=== PATIENT | female | born 1990 | race Caucasian/White ===

== ENCOUNTER 2017-04-07 05:51 | Emergency (ER) | payer OTHER ==
[2017-04-07 05:56] VITALS: TEMP 97.7
--- NOTE | 2017-04-07 06:07 | CPEKG ---
Heart Rate: 66 RR Interval: 909 QRSD Interval: 92 QT Interval: 396 QTC Interval: 415 QRS [place]: 31 T Wave [place]: 17 EKG Severity - NORMAL ECG - EKG Impression: Sinus Rhythm Electronically Signed By: Chico Vargas 07-Apr-2017 06:18:54
--- NOTE | 2017-04-07 06:19 | EDPHY ---
H & P Stated Complaint: FAST HEARTRATE AND TIGHTNESS IN CHEST WITH WAKING UP THIS AM Time Seen by Provider: 04/07/17 05:58 HPI/ROS: Chief Complaint: Palpitations, chest tightness HPI: 26-year-old woman with myasthenia gravis was getting ready for work this morning when she felt some palpitations and measure her heart rate and noted that it was over 100. Patient then developed some tightness in her central chest. No recent illness. No fevers or chills. No cough. No nausea or vomiting. Does not have a history of similar episodes in the past. States that her typical my seen his symptoms are eyelid drooping in increasing fatiguing over the course of the day. No recent exacerbations or worsening of symptoms. No recent travel. No leg pain or swelling. She is not on oral contraceptives. She does not smoke. States that right now she is feeling a little bit of tightness in her chest when she takes a big breath. It does not hurt to breathe. ROS: 10 point Review of Systems is negative except as noted in the HPI. PMH: Myasthenia gravis Social History: No smoking, no alcohol, no recreational drug use Family History: non-contributory Physical Exam: Gen: Awake, Alert, anxious appearing HEENT: Nose: no rhinorrhea Eyes: PERRLA, EOMI Mouth: Moist mucosa Neck: Supple, no JVD Chest: nontender, lungs clear to auscultation Heart: S1, S2 normal, no murmur Abd: Soft, non-tender, no guarding Back: no CVA tenderness, no midline tenderness Ext: no edema, non-tender Skin: no rash Neuro: CN II-XII intact, Sensation grossly intact, Strength 5/5 in bilateral upper and lower extremities - Personal History LMP (Females 10-55): Now Current Tetanus/Diphtheria Vaccine: Yes Current Tetanus Diphtheria and Acellular Pertussis (TDAP): Yes - Medical/Surgical History Hx Asthma: No Hx Chronic Respiratory Disease: No Hx Diabetes: No Hx Cardiac Disease: No Hx Renal Disease: No Hx Cirrhosis: No Hx Alcoholism: No Hx HIV/AIDS: No Hx Splenectomy or Spleen Trauma: No Other PMH: MYASTHENIA GRAVIS - Social History Smoking Status: Never smoked Constitutional: Initial Vital Signs Temperature (C) 36.5 C 04/07/17 05:53 Heart Rate 76 04/07/17 05:53 Respiratory Rate 18 04/07/17 05:53 Blood Pressure 138/92 H 04/07/17 05:53 O2 Sat (%) 92 04/07/17 05:53 O2 Delivery Mode Room Air Allergies/Adverse Reactions: cefazolin Allergy (Verified 04/07/17 05:57) Home Medications: Medication Instructions Recorded CONT 04/07/17 Pyridostigmine [place] [Mestinon 60 mg PO QID 04/07/17 60mg (*)] Medical Decision Making - Diagnostics EKG Interpretation: ECG time 6:03 a.m., sinus rhythm with a rate of 66, normal axis, normal intervals, no acute ST or T-wave changes. Impression: Normal ECG. ED Course/Re-evaluation: 26-year-old woman with history of myasthenia gravis presenting with palpitations and some tightness in her chest. She is speaking in long full sentences. There is no evidence of any respiratory weakness. Vital signs are entirely normal with a oxygen saturation of 100% on room air. Lungs are clear. ECG shows a normal sinus rhythm with a rate of 66. Patient does not have any leg pain or swelling. There is no evidence of acute cardiac cause. She has not have any risk factors for DVT or PE and is perc score is 0. She has no neurologic weakness at this time. She is moving excellent air. No evidence acute cardiac, pulmonary or neurologic process at this time. Patient has been reassured. Will discharge with follow-up with her neurologist and primary care physician, return for any concerns. Departure - Departure Disposition: Home, Routine, Self-Care Clinical Impression: Palpitations Condition: Good Instructions: Heart Palpitations (ED) Additional Instructions: Follow up with primary care physician injury neurologist in 2-3 days. Return to the emergency department for increasing weakness, worsening shortness of breath, rapid heart rate, fainting, or any other concerns. Referrals: Patient,NotPresent [Unknown] - As per Instructions Stand Alone Forms: Work Excuse
[2017-04-07 06:40] VITALS: BP 104/82; PULSE 61; RESP 16; O2SAT 100
== END 2017-04-07 06:40 | disposition home or self-care (01) ==
DX: R00.2 Palpitations (principal)

== ENCOUNTER → 2017-04-09 | Outpatient (CLI) | payer OTHER | LOC: FLAB 13:14 | PROVIDERS: ATTEND Family Medicine | DX: J45.909 Unspecified asthma, uncomplicated (principal); G70.00 Myasthenia gravis without (acute) exacerbation; H53.2 Diplopia; R20.2 Paresthesia of skin ==